=== PATIENT | male | born 2000 | race Caucasian/White ===

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

== ENCOUNTER 2019-05-24 19:53 | Emergency (ER) | payer BC ==
--- NOTE | 2019-05-24 20:18 | ED ---
Influenza-Like Illness - HPI Summary HPI Summary: Patient complains of body aches, fever up to 101.9, headache, sore throat rated at 8/10, mild productive cough, mild nausea. Denies ear pain, neck stiffness, SOB, V/D, abdominal pain, change in urine, change in BM. Medical history is none. 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 Onset/Duration: Sudden Onset, Lasting Hours Severity: Moderate Associated Signs & Symptoms: Fever, Myalgia, Cough, Sore Throat, Headache - Allergy/Home Medications Allergies/Adverse Reactions: Allergies Allergy/AdvReac Type Severity Reaction Status Date / Time Sulfa (Sulfonamide Allergy Unknown Unknown Verified 05/24/19 20:25 Antibiotics) Reaction Details PMH/Surg Hx/FS Hx/Imm Hx Endocrine/Hematology History: Denies: Hx Diabetes, Hx Thyroid Disease Cardiovascular History: Denies: Hx Hypercholesterolemia, Hx Hypertension, Hx Pacemaker/ICD, Hx Peripheral Vascular Disease History: Denies: Hx Dialysis Musculoskeletal History: Denies: Hx Arthritis, Hx Rheumatoid Arthritis, Hx Osteoporosis Sensory History: Denies: Hx Cataracts, Hx Contacts or Glasses, Hx Glaucoma, Hx Hearing Aid Opthamlomology History: Denies: Hx Cataracts, Hx Contacts or Glasses, Hx Glaucoma EENT History: Denies: Hx Deafness Neurological History: Reports: Hx Headaches Denies: Hx Seizures, Hx Transient Ischemic Attacks (TIA) Psychiatric History: Denies: Hx Anxiety, Hx Depression, Hx Panic Disorder - Surgical History Surgery Procedure, Year, and Place: tubes in ears, tonsils and adenoids removed - Immunization History Date of Tetanus Vaccine: Up to Date Infectious Disease History: No Infectious Disease History: Denies: Traveled Outside the [place] in Last 30 Days - Family History Known Family History: Positive: Non-Contributory - Social History Alcohol Use: Occasionally Substance Use Type: Reports: Marijuana Smoking Status (MU): Never Smoked Tobacco Review of Systems Positive: Fever Eyes: Negative Positive: Sore Throat Cardiovascular: Negative Positive: Cough Positive: Nausea Genitourinary: Negative Positive: Myalgia Skin: Negative Positive: Headache Psychological: Normal All Other Systems Reviewed And Are Negative: Yes Physical Exam Triage Information Reviewed: Yes Vital Signs On Initial Exam: Initial Vitals Temp Pulse Resp BP Pulse Ox 97.2 F 107 16 129/85 98 05/24/19 19:55 05/24/19 19:55 05/24/19 19:55 05/24/19 19:55 05/24/19 19:55 Vital Signs Reviewed: Yes Appearance: Positive: Well-Appearing Skin: Positive: Warm Head/Face: Positive: Normal Head/Face Inspection Eyes: Positive: Normal ENT: Positive: Normal ENT inspection Neck: Positive: Supple Respiratory/Lung Sounds: Positive: Clear to Auscultation Cardiovascular: Positive: Tachycardia Abdomen Description: Positive: Nontender Musculoskeletal: Positive: Normal Neurological: Positive: Normal Psychiatric: Positive: Normal AVPU Assessment: Alert - [place] Coma Scale Best Eye Response: 4 - Spontaneous Best Motor Response: 6 - Obeys Commands Best Verbal Response: 5 - Oriented Coma Scale Total: 15 Procedures - Sedation Patient Received Moderate/Deep Sedation with Procedure: No Diagnostics - Vital Signs Vital Signs Temp Pulse Resp BP Pulse Ox 05/24/19 19:55 97.2 F 107 16 129/85 98 - Laboratory Result Diagrams: 05/24/19 20:50 05/24/19 20:50 Lab Statement: Any lab studies that have been ordered have been reviewed, and results considered in the medical decision making process. Flu Symptom Course/Dx - Course Course Of Treatment: Patient complains of body aches, fever up to 101.9, headache, sore throat rated at 8/10, mild productive cough, mild nausea. Denies ear pain, neck stiffness, SOB, V/D, abdominal pain, change in urine, change in BM. Medical history is none. Tylenol at 4 PM. Patient tachycardic with heart rate of 117. Vital signs otherwise within normal limits. Labs within normal limits. [place] negative. Flu negative. Strep negative. - Diagnoses Provider Diagnoses: Viral syndrome Discharge ED - Sign-Out/Discharge Documenting (check all that apply): Patient Departure - Discharge Plan Condition: Stable Disposition: HOME Prescriptions: Ondansetron ODT TAB* [Zofran 4 MG Odt TAB*] 4 mg PO Q8H PRN 4 Days #14 tab.odt PRN Reason: Nausea Patient Education Materials: Viral Syndrome (ED) Referrals: Werner Solis MD [Primary Care Provider] - Additional Instructions: Alternate ibuprofen 600 mg with Tylenol 650 mg every 3 hours for 2 days as needed for headache, body aches and fever control. Follow-up with primary care. Return to the ED for any new or worsening symptoms. - Billing Disposition and Condition Condition: STABLE Disposition: Home
[2019-05-24 20:37] LABS: Rapid Strep Molecular Negative (Negative)
[2019-05-24 20:43] LABS: Influenza A Molecular NEGATIVE (Negative); Influenza B Molecular NEGATIVE (Negative)
[2019-05-24 20:57] LABS: ABS Eosinophils 0.1 10^3/ul (0-0.6); ABS Lymphocytes 1.6 10^3/ul (1.0-4.8); ABS Monocytes 0.4 10^3/ul (0-0.8); ABS Neutrophils 4.9 10^3/ul (1.5-7.7); Hematocrit 46 % (42-52); Hemoglobin 16.1 g/dL (14.0-18.0); Lymphocyte % 23.4 %; Mean Corpuscular HGB Conc 35 g/dL (31-36); Mean Corpuscular Hemoglobin 29 pg (27-31); Mean Corpuscular Volume 82 fL (80-94); Mean Platelet Volume 7.2 fL (7.4-10.4); Nucleated Red Blood Cells % 0.4; Platelet Count 207 10^3/uL (150-450); Red Blood Count 5.55 10^6 /uL (4.18-5.48); Red Cell Distribution Width 13 % (10-15)
[2019-05-24 21:12] LABS: Albumin 4.2 g/dL (3.2-5.2); Albumin/Globulin Ratio 1.6 (1-3); BUN/Creatinine Ratio 19.1 (8-20); C Reactive Protein 27.43 mg/L (<8.01); Calcium 9.2 mg/dL (8.6-10.3); EGFR African American 130.6 (>60); EGFR Non-African American 107.9 (>60); Globulin 2.6 g/dL (2-4); Potassium 3.4 mmol/L (3.5-5.0); Total Bilirubin 0.4 mg/dL (0.2-1.0); Total Protein 6.8 g/dL (6.4-8.9)
[2019-05-24] MEDS ORDERED: Ondansetron ODT TAB* 4 MG PO ONE (21:56)
[2019-05-24 21:58] VITALS: BP 113/74
[2019-05-24] MEDS ORDERED: Ondansetron ODT TAB* 4 MG ONE (22:00)
== END 2019-05-24 21:55 | disposition home or self-care (01) ==
LOC: ED 19:53
DX: B34.9 Viral infection, unspecified (principal); Z88.2 Allergy status to sulfonamides
CPT/HCPCS: 36415; 80053; 83605; 85025; 86140; 86308; 87040; 87651; 99282; A9270-GY